=== PATIENT | female | born 1965 | race Hispanic/Latino ===

== ENCOUNTER → 2017-09-27 | Day surgery (SDC) | payer BC ==
[2017-09-19 14:04] LABS: BASOPHILS % 0.4 % (0.0-1.0); EOSINOPHILS # (AUTO) 0.3 (0.0-0.4); EOSINOPHILS % 2.6 % (0.0-6.0); HEMATOCRIT 38.4 % (34.2-44.1); HEMOGLOBIN 12.1 g/dL (12.0-16.0); LYMPHOCYTES # (AUTO) 3.4 (1.0-3.2); LYMPHOCYTES % 34.9 % (18.0-39.1); MEAN CORPUSCULAR HEMOGLOBIN 28.1 pg (28-32); MEAN CORPUSCULAR HGB CONC 31.5 g/dL (31-35); MEAN CORPUSCULAR VOLUME 89.1 fL (81-99); MONOCYTES % 10.1 % (4.4-11.3); NEUTROPHILS # (AUTO) 5.1 (2.1-6.9); NEUTROPHILS % 51.8 % (38.7-80.0); PLATELET COUNT 209 x10e3/uL (140-360); RED BLOOD COUNT 4.31 x10e6/uL (3.6-5.1); RED CELL DISTRIBUTION WIDTH 13.7 % (11.7-14.4)
[2017-09-19 14:23] LABS: ANION GAP 12.6 mmol/L (8-16); BLOOD UREA NITROGEN 13 mg/dL (7-26); BUN/CREATININE RATIO 14 (6-25); CALCIUM 9.4 mg/dL (8.4-10.2); CARBON DIOXIDE 27 mmol/L (22-29); CHLORIDE 107 mmol/L (98-107); CREATININE, SERUM 0.91 mg/dL (0.57-1.11); EST GLOMERULAR FILTRATION RATE > 60 ML/MIN (60-); GLUCOSE 86 mg/dL (74-118); POTASSIUM 4.6 mmol/L (3.5-5.1); SODIUM 142 mmol/L (136-145)
[~2017-09-27] MED LIST: ALEVE220 M1 PO; BETAMETHASONE DISODIUM PHOS 6 MG/ML VIAL ONE; BIRTH CONTROL PO; BUPIVACAINE HCL 0.5% INJ 30 ML VIAL INJ ONE; CEFAZOLIN SOD 1 GM/NS 50ML 50 ML IV ONE; DEXAMETHASONE SOD PHOS INJ 4 MG/ML VIAL ONE; FENTANYL CITRATE/PF 100MCG/2 ML INJ ONE; KETOROLAC TROMETHAMINE 30 MG/ML VIAL ONE; LIDOCAINE HCL 2% LOCAL INJ 5 ML SDV VIAL INJ ONE; MELATONIN3 MG PO; METOCLOPRAMIDE HCL 10 MG/2ML VIAL ONE; MIDAZOLAM HCL 2 MG/2 ML VIAL ONE; ONDANSETRON HCL INJ 2 MG/ML VIAL ONE; PROPOFOL IV EMULSION 10 MG/ML 20 ML VIAL ONE; SEVOFLURANE INHAL SOLN 250 ML PEN BTL ONE
--- NOTE | 2017-09-27 09:43 | Diagnostic Imaging Report ---
PROCEDURE:FOOT RIGHT AP \T\ LAT TECHNIQUE:Portable AP, lateral and oblique views right foot INDICATION:Status post surgery COMPARISON:None. FINDINGS: See conclusion. CONCLUSION: 1. Expected postoperative findings of hallux valgus repair and bunionectomy, with K wire and screw fixation of the distal great toe metatarsal shaft. 2. Fourth ray hammertoe correction with K wire fixation across the phalanges. 3. Expected postoperative sequela including regional soft tissue swelling, gas and overlying bandage. 4. No acute abnormality. Dictated by: Chuck Lemos M.D. on 09/27/2017 at 9:50 Electronically approved by: Chuck Lemos M.D. on 09/27/2017 at 9:50
--- NOTE | 2017-10-19 12:14 | Operative Report ---
PREOPERATIVE DIAGNOSES 1. Painful hallux valgus deformity, right foot. 2. Painful contracted hammer toes, 4th digit, right. 3. Painful contracted hammer toes, 5th digit, right. 4. Painful plantar calcaneal heel spur, right foot. 5. 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 POSTOPERATIVE DIAGNOSES 1. Painful hallux valgus deformity, right foot. 2. Painful contracted hammer toes, 4th digit, right. 3. Painful contracted hammer toes, 5th digit, right. 4. Painful plantar calcaneal heel spur, right foot. 5. 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 OPERATIVE PROCEDURES 1. Mickey bunionectomy and screw fixation, right foot. 2. Arthroplasty, 4th digit with K-wire fixation. 3. Arthroplasty, 5th digit. 4. Resection of plantar calcaneal heel spur, right foot. 5. Neurolysis, tibial nerve. 6. Neurolysis, medial plantar nerve. 7. Neurolysis, lateral plantar nerve. 8. Intraoperative use of fluoroscopy. 9. Trigger point shot of cortisone. 10. Application of posterior splint. ANESTHESIA: General. HEMOSTASIS: Pneumatic thigh tourniquet at 350 mmHg. PROCEDURE IN DETAIL: The patient was taken into the operating room, placed on the operating table in supine position. Following induction of general anesthesia by the anesthesiologist, Webril wraps were placed on the patient's right thigh followed by application of right thigh tourniquet. The right lower extremity was then prepped and draped in the usual aseptic manner and the following procedures were then performed: Procedure #1, Mickey bunionectomy with screw fixation, right foot: Attention was directed to the dorsal medial aspect of the 1st MPJ where a 6-cm linear incision was performed. Incision was deepened down to the joint capsule. A longitudinal capsulotomy was then performed exposing the dorsomedial exostosis to the 1st metatarsal head. Using an oscillating saw, dorsomedial exostosis was excised from the operation site in toto. A V-osteotomy was then performed from medial to lateral. Capital fragment was then transpositioned laterally. Upon adequate surgical and anatomical reduction, utilizing proper AO technique, a 2.0 x 14-mm cortical screw in conjunction with a burry 0.045 K-wire was used to achieve stability of the osteotomy site. All redundant bone media was excised via the use of an oscillating saw and rotating moses. Procedures #2 and #3, arthroplasty 4th and 5th digits, with K-wire fixation of 4th: Attention was then directed to the dorsal aspect of the 4th and 5th toes overlying the proximal interphalangeal joint where a 3-cm linear incision was performed. Incision was deepened down to the joint capsule. Transverse capsulotomy was then performed exposing the heads of the proximal phalanges. Via the use of an oscillating saw, the heads of the proximal phalanges were excised from the operation site in toto. All roughened bony edges were rasped smooth. The 4th toe was still noted to be contracted, so a 0.045 K-wire was introduced up to the metatarsophalangeal joint to achieve proper anatomic reduction. Procedure #4, resection of plantar calcaneal heel spur, right foot: Attention was then directed to the medial aspect of the right heel where a 3-cm linear incision was performed. Incision was deepened down to the subcutaneous tissue and plantar fascial level. The plantar fascia was then clearly visualized. The medial one-half of plantar fascia was then resected from its insertion site exposing the plantar calcaneal spur. Via the use of an osteotome and mallet and reciprocating saw, the plantar calcaneal spur was excised from the operation site in toto. Procedures #5, #6, and #7, neurolysis of the tibial nerve, neurolysis medial plantar nerve, and neurolysis lateral plantar nerve, right foot: Attention was then directed to the medial aspect of the right tarsal canal where a 6 to 7 curvilinear incision was performed. The incision was deepened via blunt dissection being careful to retracting any vital structures and ligating the superficial vessels as necessary. Utilizing meticulous dissection, the flexor retinaculum was then encountered. Utilizing Metzenbaum scissors, the flexor retinaculum was then cut. Adhesions surrounding the tibial nerve were then encountered and released via blunt dissection. Procedures #6 and #7, the incision was then carried distally into the emely pedis. The emely pedis was then cut and the nerve was then followed to the medial and lateral plantar nerves where the neurolysis was performed removing all adhesions surrounding the nerve. All areas were then copiously flushed with sterile antibiotic solution and suctioned. Procedure #8, intraoperative use of fluoroscopy was then used to make sure proper alignment fixation was achieved. Closure was then obtained utilizing 3-0 Vicryl, 4-0 Vicryl, and 4-0 nylon for capsule, subcutaneous tissue, and skin respectively. Procedure #9, trigger point shot of cortisone was then given to the 1st and 4th interspace and the right heel and approximately 15-20 mL of 0.5% plain Marcaine was used to achieve local anesthesia to above-mentioned surgical area. Sterile dressings were applied. Upon release of the thigh tourniquet, blood hyperemia was noted to all digits to the patient's right foot. Prior to closing, a TLS drain was inserted into the right heel to prevent any type of hematoma formation. Procedure #10, application of posterior splint: A properly placed posterior splint was then applied keeping the foot at 90 degrees with respect to the leg to try to prevent any type of postop complications. Patient was then transferred from the OR to recovery room with vital signs stable and neurovascular status intact. No intraoperative complications were encountered. Blood loss from the surgery was minimal. The patient to remain nonweightbearing with the aid of crutches, keep her foot elevated, and is to apply an ice pack to the ankle and joint areas. Job#: [id number] VAS
== END | disposition home or self-care (01) ==
LOC: OR 05:37
PROVIDERS: ATTEND Podiatrist Foot Surgery
DX: M20.11 Hallux valgus (acquired), right foot (principal); M20.41 Other hammer toe(s) (acquired), right foot; M77.31 Calcaneal spur, right foot; G57.51 Tarsal tunnel syndrome, right lower limb; G58.8 Other specified mononeuropathies; Z01.810 Encounter for preprocedural cardiovascular examination; Z01.812 Encounter for preprocedural laboratory examination; Z86.73 Personal history of transient ischemic attack (TIA), and cerebral infarction without residual deficits
CPT/HCPCS: 28035; 28119; 28285 ×2; 28296; 36415; 64704 ×2; 73620; 80048; 81025; 85025; 88305; 88311; 93005; C1713; J0720; J1100; J1885; J2001; J2250; J2405; J2765